=== PATIENT | male | born 1990 | race Caucasian/White ===

== ENCOUNTER 2024-02-09 11:21 | Emergency (ER) | payer OTHER ==
[~2024-02-09] VITALS: Ht 180.3 cm; Wt 131.5 kg
[2024-02-09 11:28] VITALS: BP 145/87; TEMP 98.2
[2024-02-09] MEDS ORDERED: BUPR1FIL5 SL (11:54)
[2024-02-09 12:09] VITALS: O2SAT 95
== END 2024-02-09 12:12 | disposition home or self-care (01) ==
LOC: ER 11:30
DX: F11.10 Opioid abuse, uncomplicated (principal); Z76.0 Encounter for issue of repeat prescription